=== PATIENT | female | born 1995 | race Caucasian/White ===

== ENCOUNTER 2017-06-10 22:44 | Emergency (ER) | payer OTHER ==
[~2017-06-10] VITALS: Ht 160 cm; Wt 64.5 kg
[2017-06-10 22:46] VITALS: TEMP 36.6; Ht 160 cm; Wt 64.5 kg
--- NOTE | 2017-06-10 23:01 | EMERGENCY ROOM VISIT NOTE ---
History First contact with patient: 22:49 Chief Complaint: HEAD INJURY (MINOR) Stated Complaint: HEAD INJURY History of Present Illness The patient is a 22 year old female who presents to the Emergency Room with complaints of head injury. Patient states that she thinks she bumped her head while she was sleeping on Friday night. She states she was not drinking or doing drugs. The patient states that she noticed a bump on her head yesterday. She had a slight headache but did not even take anything for the headache. The patient admits to some nausea but that is normal for her. The patient denies any memory loss, visual changes or dizziness. The patient states she went to [facility] today and the doctor there, Dr. Bell told her to come to the emergency room for a CAT scan to rule out intracranial bleed. Review of Systems 10 system review was performed and was negative unless stated otherwise history of present illness. Past Medical/Surgical History IBS Social History Smoking Status: Never Smoker Alcohol Use: occasionally Marital Status: single Housing Status: lives with roommate Occupation Status: [employer] student Physical Exam Vital Signs Date Time Temp Pulse Resp B/P (MAP) Pulse Ox O2 Delivery O2 Flow Rate FiO2 06/10/17 22:46 36.6 89 18 120/81 99 Room Air Physical Exam GENERAL: 22-year-old white female appears in no acute distress. MENTAL Status: Alert and oriented 3. EYES: PERRLA. EOMs intact. No raccoon eyes noted. EARS: Canals clear. TMs without hemotympanum FACE: Patient has a palpable soft tissue lump on the right side of her forehead which is tender to palpation. There is no associated erythema NECK: Supple, no lymphadenopathy noted. No carotid bruits noted. LUNGS: Clear auscultation without wheezes rales or rhonchi. CARDIAC: Regular rate and rhythm without murmur. Pulses is full and equal throughout. NEURO:Cranial nerves two through 12 intact. Cerebellar function intact with [id number]. Fine motor intact with alternating finger motions. Medical Decision & Procedures ED Course The patient was evaluated. I discussed with the patient I did not feel that it was necessary to obtain a CAT scan at this time. The patient does not have any neurologic deficit nor does she have an increasing headache. The patient is in agreement with treatment plan was discharged to home in stable condition. Medical Decision Differential includes: Acute intracranial bleed, trauma, meningitis, encephalitis, increased intracranial pressure, mass or mass effect, facial or dental infection, temporal arteritis, CVA, TIA, acute hypertensive emergency, sinusitis, carbon monoxide exposure. [place] Drug Monitoring Program Search Results: patient reviewed within database Head Trauma GCS Score: 15 Medication Reconcilliation Current Medication List: was personally reviewed by me Blood Pressure Screening Patient's blood pressure: Normal blood pressure Impression Primary Impression: Head contusion Departure Information Dispostion Home / Self-Care Condition GOOD Referrals No Doctor, Assigned (PCP) Forms HOME CARE DOCUMENTATION FORM, IMPORTANT VISIT INFORMATION Patient Instructions ED Head Injury Closed, [facility] Additional Instructions Tylenol as needed for headache. Follow head injury handout instructions, any problems return to ER. Problem Qualifiers Primary Impression: Head contusion Encounter type: initial encounter Contusion of head detail: scalp Qualified Codes: S00.03XA - Contusion of scalp, initial encounter
[2017-06-10] MEDS ORDERED: LEVO1IUD2 IU (23:08)
[2017-06-10] MEDS ORDERED: RANI150T85 PO (23:08)
[2017-06-10 23:13] VITALS: BP 120/72; PULSE 80; O2SAT 99
== END 2017-06-10 23:14 | disposition home or self-care (01) ==
LOC: C.EDB 22:46
DX: S00.03XA Contusion of scalp, initial encounter (principal); X58.XXXA Exposure to other specified factors, initial encounter